=== PATIENT | male | born 1995 | race Caucasian/White ===

== ENCOUNTER 2018-09-18 18:10 | Emergency (ER) | payer BC ==
[2018-09-18] MEDS ORDERED: PROPOFOL EMUL 10MG/ML 20 ML VL IVP ONE (18:15)
--- NOTE | 2018-09-18 18:17 | ER Report ---
History and Physical Time Seen By MD: 18:08 HPI/ROS CHIEF COMPLAINT: Fall, left elbow deformity HISTORY OF PRESENT ILLNESS: 23-year-old male was bouldering at facility when he fell approximately 8 feet. He was reaching out words backwards behind his back. He obviously has deformity the left elbow, suspicious for dislocation. He is complaining of significant elbow pain. He is brought in by EMS in a sling. The left upper extremity is neurovascularly intact. Patient denies any other injuries such as head, neck, chest or back pain. Patient denies any past significant medical history. Allergies: Coded Allergies: No Known Allergies (Verified Allergy, Unknown, 09/18/18) Home Meds Active Scripts Hydrocodone Bit/Acetaminophen (HYDROCODON-ACETAMINOPHEN 5-325) 1 Each Tablet, 1 EACH PO Q4-6H PRN for PAIN, #12 TAKE ONE TABLET BY MOUTH EVERY 4-6 HOURS NEEDED FOR PAIN Prov:ELEAZAR LORENZO DO 09/18/18 Reviewed Nurses Notes: Yes Old Medical Records Reviewed: Yes Constitutional Vital Sign - Last 24 Hours 09/18/18 09/18/18 09/18/18 09/18/18 18:10 18:14 18:15 18:25 Temp 97.5 Pulse 87 87 86 Resp 11 12 12 B/P (MAP) 133/78 (96) 133/78 129/104 (112) Pulse Ox 98 95 97 O2 Delivery Room Air 09/18/18 09/18/18 09/18/18 09/18/18 18:30 18:35 18:40 18:45 Pulse 101 Resp 11 B/P (MAP) 140/77 (98) 142/84 (103) 140/81 (100) 134/77 (96) Pulse Ox 94 09/18/18 09/18/18 09/18/18 09/18/18 18:50 18:55 19:00 19:05 Pulse 87 Resp 9 B/P (MAP) 131/74 (93) 109/75 (86) 102/82 (89) 128/75 (92) 09/18/18 09/18/18 09/18/18 09/18/18 19:10 19:15 19:25 19:30 Pulse 71 68 72 Resp 6 13 13 B/P (MAP) 123/59 (80) 129/82 (98) 138/83 (101) 132/82 (99) 09/18/18 09/18/18 09/18/18 19:40 19:45 19:46 Pulse 87 Resp 6 B/P (MAP) 136/90 (105) 132/82 (99) 130/87 (101) Physical Exam General Appearance: The patient is alert, has no immediate need for airway protection and no current signs of toxicity. Palpation of the head and neck reveals no tenderness or trauma HEENT: Pupils equal and round no injection. Oropharynx without dental trauma Respiratory: Chest is non tender, lungs are clear to auscultation. No chest wall tenderness Cardiac: regular rate and rhythm Gastrointestinal: Abdomen is soft and non tender, no masses, bowel sounds normal. Musculoskeletal: Neck: Neck is supple and non tender. Extremities have full range of motion and are non tender. Examination of the left upper extremity reveals obvious deformity of the elbow. The distal portion of the wrist and hand are neurovascularly intact and demonstrate a strong grasp. The shoulder is unremarkable on palpation Skin: No rashes or lesions. DIFFERENTIAL DIAGNOSIS: After history and physical exam differential diagnosis was considered for sprain, strain, fracture, dislocation, contusion Medical Decision Making EKG/Imaging Imaging X-ray: Left elbow, 3 views was obtained. I viewed the images myself on the PACS system. My interpretation of the images is: Posterior and lateral dislocation. The radiologist interpretation had no clinically significant variation from this interpretation. X-ray: Left elbow, 3 views postreduction was obtained. I viewed the images myself on the PACS system. My interpretation of the images is: Normal alignment, no evidence of fracture. The radiologist interpretation had no clinically significant variation from this interpretation. ED Course/Re-evaluation Clinical Indication for ER IV: IV Access ED Course Patient was admitted to an examination room. H&P was done. The differential diagnoses was considered. On clinical examination, patient is an obviously dislocated left elbow. Patient was evaluated and informed consent was provided for conscious sedation. Patient was given propofol 150 mg IV. His left elbow was relocated. His left upper extremity was noted to be neurovascularly intact. Postreduction films show normal alignment. Patient was placed in a long-arm splint and a sling. He is advised to follow-up with orthopedics. Patient was given a prescription for Lortab for pain relief. Procedure: Dislocation reduction. The left elbow was reduced in the usual fashion without complications. Post reduction the patient's neurovascular exam is normal. Post reduction x-ray demonstrates reduction of the joint to the anatomic position. The procedure was performed by myself. Procedure: Procedural sedation. A pre-sedation evaluation was completed on the patient at 1835. Patient is an appropriate candidate for procedural sedation. The risks of the sedation were discussed with the patient. 1842 The patient was reevaluated immediately prior to initiation of sedation. The patient was sedated with what medications?. 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 There were no complications and no significant hypoxemia. I remained at the bedside for the sedation. The total time I spent in the procedural sedation was 20 minutes. Post sedation evaluation: Patient was alert and cooperative, hemodynamically stable with appropriate respiratory status, temperature and pain control without ongoing nausea and vomiting. Decision to Disposition Date: Sep 18, 2018 Decision to Disposition Time: 18:32 Depart Departure Latest Vital Signs Vital Signs Date Time Temp Pulse Resp B/P (MAP) Pulse Ox O2 Delivery O2 Flow Rate FiO2 09/18/18 19:46 130/87 (101) 09/18/18 19:45 87 6 09/18/18 18:40 94 09/18/18 18:14 97.5 Room Air Impression: Primary Impression: Dislocation of left elbow Condition: Improved Disposition: HOME OR SELF-CARE Referrals: WAYNE CONTE MD New Scripts Hydrocodone Bit/Acetaminophen (HYDROCODON-ACETAMINOPHEN 5-325) 1 Each Tablet 1 EACH PO Q4-6H PRN for PAIN, #12 TAKE ONE TABLET BY MOUTH EVERY 4-6 HOURS NEEDED FOR PAIN Prov: ELEAZAR LORENZO DO 09/18/18 Patient Instructions: Elbow Dislocation (ED) Additional Instructions: Take ibuprofen 200 mg 3 tablets 3 times a day with food Apply ice packs to your elbow 30-60 minutes 3-4 times per day Call and make a follow-up appointment early next week with [facility] Dr. Conte Problem Qualifiers Primary Impression: Dislocation of left elbow Encounter type: initial encounter Qualified Codes: S53.105A - Unspecified dislocation of left ulnohumeral joint, initial encounter ELEAZAR LORENZO DO Sep 18, 2018 18:17
[2018-09-18] MEDS ORDERED: NS(*) 0.9% 1000 ML BAG 1,000 ML IV ONE (18:25)
--- NOTE | 2018-09-18 18:39 | RADIOLOGY IMAGING REPORT ---
FACILITY: [facility] - [place] PATIENT NAME: Ravin Corona : 1995 MR: [id number] V: [id number] EXAM DATE: ORDERING PHYSICIAN: ELEAZAR LORENZO TECHNOLOGIST: Location: [facility] - [place] Patient: Ravin Corona : 1995 Visit/Account:[id number] Date of Sevice: 09/18/2018 ELBOW 3 VIEW LEFT COMPARISONS: None. ADDITIONAL PERTINENT HISTORY: Fall FINDINGS: Osseous structures: Posterior and lateral dislocation about the elbow joint involving both the radius and ulna. No bony fractures noted. Joint spaces: Posterior and lateral dislocation at the left elbow joint. Surrounding soft tissues: Soft tissue swelling about the left elbow. IMPRESSION: 1. Posterior and lateral dislocation about the left elbow. 2. No evidence of underlying fracture. Report Dictated By: José Miguel Spencer MD at 09/18/2018 6:34 PM Report E-Signed By: José Miguel Spencer MD at 09/18/2018 6:35 PM WSN:[id number]
[2018-09-18] MEDS ORDERED: LOR5/325 PO (18:54)
--- NOTE | 2018-09-18 19:25 | RADIOLOGY IMAGING REPORT ---
FACILITY: [facility] - [place] PATIENT NAME: Ravin Corona : 1995 MR: [id number] V: [id number] EXAM DATE: ORDERING PHYSICIAN: ELEAZAR LORENZO TECHNOLOGIST: Location: [facility] [place] Patient: Ravin Corona : 1995 Visit/Account:[id number] Date of Sevice: 09/18/2018 EXAMINATION: Left elbow 3 views HISTORY: Post reduction COMPARISON: Prior study of earlier today. FINDINGS: There has been successful reduction of the prior posterior/lateral left elbow dislocation, with bacilio l alignment on the current exam. Joint spaces are preserved. On the oblique view there is equivocal slight osseous irregularity along the medial margin of the rad ial head which may represent a slight impaction fracture along the radial head margin. No other disc rete fracture is visualized about the left elbow. Surrounding soft tissue swelling with a small elbow joint effusion. IMPRESSION: 1. Reduction of the prior left elbow dislocation, with normal alignment on the current exam. 2. Equivocal slight osseous irregularity along the medial margin of the radial head may represent a slight impaction fracture along the radial head margin. 3. No other visualized fracture. Report Dictated By: Nader Cruz MD at 09/18/2018 7:13 PM Report E-Signed By: Nader Cruz MD at 09/18/2018 7:21 PM WSN:[id number]
[2018-09-18] MEDS ORDERED: ACET/HYDROC 5/325MG TH ER ONLY 2 TAB/BOTTLE PO ONE (19:45)
[2018-09-18 19:46] VITALS: BP 130/87
== END 2018-09-18 19:56 | disposition home or self-care (01) ==
LOC: ER 18:16
DX: S53.105A Unspecified dislocation of left ulnohumeral joint, initial encounter (principal)
CPT/HCPCS: 24600; 73080; 99152; 99285; A4565; J2704; J7030

== ENCOUNTER → 2018-09-18 | Outpatient (CLI) | payer BC ==
[~2018-09-18] MED LIST: LOR5/325 PO
== END ==
LOC: AMB 17:40
PROVIDERS: ATTEND Nurse Practitioner
DX: S53.105A Unspecified dislocation of left ulnohumeral joint, initial encounter (principal); W17.89XA Other fall from one level to another, initial encounter; Y93.31 Activity, mountain climbing, rock climbing and wall climbing
CPT/HCPCS: A0425; A0429